=== PATIENT | male | born 1955 | race Caucasian/White ===

== ENCOUNTER 2019-08-21 21:15 | Emergency (ER) | payer OTHER ==
[~2019-08-21] VITALS: Ht 170.2 cm; Wt 73.5 kg
[2019-08-21 22:02] LABS: BASOPHILS # (AUTO) 0.1 K/uL (0.0-8.0); BASOPHILS % (AUTO) 0.7 % (0.0-2.0); EOSINOPHILS # (AUTO) 0.3 K/uL (0.0-0.7); EOSINOPHILS % (AUTO) 4.5 % (0.0-7.0); HEMATOCRIT 47.9 % (36.7-47.1); LYMPHOCYTES # (AUTO) 2.9 K/uL (20.0-40.0); LYMPHOCYTES % (AUTO) 39.6 % (20.5-51.5); MEAN CORPUSCULAR HEMOGLOBIN 30.2 uug (23.8-33.4); MEAN CORPUSCULAR HGB CONC 33 g/dL (32.5-36.3); MEAN CORPUSCULAR VOLUME 90.4 fL (73.0-96.2); MONOCYTES # (AUTO) 0.8 K/uL (2.0-10.0); MONOCYTES % (AUTO) 11.4 % (0.0-11.0); NEUTROPHILS # (AUTO) 3.2 K/uL (1.8-8.9); NEUTROPHILS % (AUTO) 43.8 % (38.5-71.5); PLATELET COUNT (AUTO) 247 K/uL (152-348); WHITE BLOOD COUNT (AUTO) 7.4 K/uL (3.6-10.2)
[2019-08-21 22:18] LABS: BILIRUBIN,DIRECT 0.1 mg/dL (0.0-0.2); BILIRUBIN,TOTAL 0.4 mg/dL (0.2-1.0); CREATININE 0.7 mg/dL (0.6-1.3); POTASSIUM 4.3 mmol/L (3.5-5.1); TOTAL PROTEIN, SERUM 7.2 g/dL (6.4-8.2)
[2019-08-21] MEDS ORDERED: IV NS 1000 ML 1,000 ML IV ONE (23:00)
[2019-08-21] MEDS ORDERED: MECLIZINE HCL 25 MG TABLET PO ONE (23:00)
[2019-08-21] MEDS ORDERED: MECLIZINE HCL 25 MG TABLET ONE (23:10)
[2019-08-21 23:51] LABS: *BILIRUBIN,URIN NEGATIVE (NEGATIVE); *BLOOD, URINE 1+ (NEGATIVE); *CLARITY,URINE CLEAR (CLEAR); *COLOR,URINE YELLOW (YELLOW); *KETONES,URINE NEGATIVE (NEGATIVE); *UROBILINOGEN,URINE 0.2 E.U./dl (NORMAL); LEUKOCYTE ESTERASE ,URINE NEGATIVE (NEGATIVE); NITRITE, URINE NEGATIVE (NEGATIVE); UGLUCOSE NEGATIVE (NEGATIVE)
[2019-08-22] LABS: BACTERIA,URINE NONE SEEN /HPF (NONE SEEN); SQUAMOUS EPITHELIAL CELL,UR FEW /HPF (NONE SEEN); WBC,URINE 0-3 /HPF (0-3)
--- NOTE | 2019-08-22 00:30 | NUR ---
IV removed. Catheter intact and site benign. Pressure and 4x4 gauze applied to site. No bleeding noted. Patient discharged to home in stable conditon. Written and verbal after care instructions given. Patient verbalizes understanding of instructions. Patient ambulating with steady gait. Denies any dizziness. NAD noted
[2019-08-22 00:54] VITALS: BP 130/84
== END 2019-08-22 00:30 | disposition home or self-care (01) ==
LOC: ER 21:19
DX: R42 Dizziness and giddiness (principal)
CPT/HCPCS: 36415; 70030-TC; 70450; 85025; 85730; 93005; A4663; J7030; J8597

== ENCOUNTER 2020-02-19 21:16 | Emergency (ER) | payer OTHER ==
[~2020-02-19] VITALS: Ht 172.7 cm; Wt 79.8 kg
[~2020-02-19 21:16] MED LIST: TRAZ-182 PO
--- NOTE | 2020-02-19 21:30 | NUR ---
at bedside for MSE
[2020-02-19] MEDS ORDERED: ALBUTEROL SULFATE 2.5 MG/3 ML NEBU NEB ONE (22:00)
[2020-02-19] MEDS ORDERED: IV NORMAL SALINE 1000 ML BAG IV ONE (22:00)
[2020-02-19 22:04] LABS: *BILIRUBIN,URIN NEGATIVE (NEGATIVE); *BLOOD, URINE 1+ (NEGATIVE); *CLARITY,URINE CLEAR (CLEAR); *COLOR,URINE YELLOW (YELLOW); *KETONES,URINE NEGATIVE (NEGATIVE); *UROBILINOGEN,URINE 0.2 E.U./dl (NORMAL); LEUKOCYTE ESTERASE ,URINE NEGATIVE (NEGATIVE); NITRITE, URINE NEGATIVE (NEGATIVE); UGLUCOSE NEGATIVE (NEGATIVE)
[2020-02-19] MEDS ORDERED: ALBUTEROL SULFATE 2.5 MG/3 ML NEBU ONE (22:04)
[2020-02-19 22:23] LABS: BASOPHILS # (AUTO) 0.1 K/uL (0.0-8.0); BASOPHILS % (AUTO) 1.2 % (0.0-2.0); EOSINOPHILS # (AUTO) 0.5 K/uL (0.0-0.7); EOSINOPHILS % (AUTO) 7.2 % (0.0-7.0); HEMATOCRIT 45.3 % (36.7-47.1); HEMOGLOBIN 15.1 g/dL (12.5-16.3); LYMPHOCYTES # (AUTO) 2.2 K/uL (20.0-40.0); LYMPHOCYTES % (AUTO) 32.2 % (20.5-51.5); MEAN CORPUSCULAR HGB CONC 33 g/dL (32.5-36.3); MEAN CORPUSCULAR VOLUME 90.3 fL (73.0-96.2); MONOCYTES # (AUTO) 0.7 K/uL (2.0-10.0); MONOCYTES % (AUTO) 9.7 % (0.0-11.0); NEUTROPHILS # (AUTO) 3.4 K/uL (1.8-8.9); NEUTROPHILS % (AUTO) 49.7 % (38.5-71.5); PLATELET COUNT (AUTO) 248 K/uL (152-348); RED BLOOD CELL COUNT(AUTO) 5.01 MIL/uL (4.06-5.63); WHITE BLOOD COUNT (AUTO) 6.9 K/uL (3.6-10.2)
[2020-02-19 22:24] LABS: CREATININE 0.9 mg/dL (0.6-1.3); POTASSIUM 3.9 mmol/L (3.5-5.1)
[2020-02-19 22:34] LABS: WBC,URINE 0-3 /HPF (0-3)
[2020-02-19 22:35] LABS: BACTERIA,URINE NONE SEEN /HPF (NONE SEEN)
[2020-02-19 22:37] LABS: BILIRUBIN,DIRECT 0.1 mg/dL (0.0-0.2); BILIRUBIN,TOTAL 0.5 mg/dL (0.2-1.0); TOTAL PROTEIN, SERUM 6.8 g/dL (6.4-8.2)
--- NOTE | 2020-02-19 23:45 | NUR ---
Patient states he is "feeling better", no signs of distress noted
--- NOTE | 2020-02-20 | NUR ---
Patient assisted to restroom at this time, no changes
--- NOTE | 2020-02-20 01:09 | NUR ---
patient noted resting in bed, no changes
--- NOTE | 2020-02-20 01:15 | NUR ---
Repeat EKG done at this time, lab in room for repeat blood draw
--- NOTE | 2020-02-20 01:53 | NUR ---
Patient discharged to home in stable condition. ambulated in steady manner, daughter tony picked up patient. Rx given. Iv removed, patient left facility with all belongings. Written and verbal after care instructions given. Patient verbalizes understanding of instructions. Stressed follow up or return to ER for worsening s/s.
[2020-02-20 01:56] VITALS: BP 133/83
== END 2020-02-20 01:55 | disposition home or self-care (01) ==
LOC: ER 21:18
DX: J44.9 Chronic obstructive pulmonary disease, unspecified (principal); R00.2 Palpitations; F17.210 Nicotine dependence, cigarettes, uncomplicated; G47.00 Insomnia, unspecified; R03.0 Elevated blood-pressure reading, without diagnosis of hypertension; R06.2 Wheezing
CPT/HCPCS: 36415; 70030-TC; 71045; 84443; 85025; 85730; 93005; J7030